=== PATIENT | male | born 1955 | race Caucasian/White ===

== ENCOUNTER 2017-11-23 08:15 | Emergency (ER) | payer OTHER ==
[~2017-11-23] VITALS: Ht 175.3 cm; Wt 77.1 kg
[2017-11-23 08:35] VITALS: BP 100/71
[2017-11-23] MEDS ORDERED: NEOMYCIN-BACITRACIN-POLYM UNITDOSE PKG TOP OINT TOP ONE (09:30)
[2017-11-23] MEDS ORDERED: ceFAZolin 1GM VL ONE (09:42)
[2017-11-23] MEDS ORDERED: STERILE WATER 10 ML ONE (09:43)
[2017-11-23] MEDS ORDERED: LIDOCAINE 1% HCL (LOCAL ANESTH.) INJ 20ML MDV IJ ONE (09:45)
[2017-11-23] MEDS ORDERED: ceFAZolin IM 1GM/2.5ML STERILE WATER IM ONE (09:45)
== END 2017-11-23 10:19 | disposition home or self-care (01) ==
LOC: ER 08:15
DX: S61.211A Laceration without foreign body of left index finger without damage to nail, initial encounter (principal); S61.213A Laceration without foreign body of left middle finger without damage to nail, initial encounter; W26.9XXA Contact with unspecified sharp object(s), initial encounter; Y93.89 Activity, other specified; Y99.8 Other external cause status; Y92.89 Other specified places as the place of occurrence of the external cause
CPT/HCPCS: 12004; 73130; 96372; 99284; J0690; J2001